=== PATIENT | male | born 1930 | race Two or more races ===

== ENCOUNTER 2018-05-01 11:17 | Inpatient (IN) | payer OTHER ==
[~2018-05-01] VITALS: Ht 157.5 cm; Wt 54.4 kg
--- NOTE | 2018-05-01 12:05 | NUR ---
FAMILIAR REFIERE PTE CON TOS PERSISTENTE Y PRESENTANDO SINTOMAS DESDE EL LUNES LA FIEBRE EMPEZO DESDE RUDDY.
[2018-05-01] MEDS ORDERED: METFORMIN HCL500 MG (12:07)
[2018-05-01] MEDS ORDERED: ASPIR 8181 MG (12:08)
[2018-05-01] MEDS ORDERED: DILTIAZEM 24HR120 MG (12:08)
[2018-05-01] MEDS ORDERED: PLAVIX75 MG (12:10)
[2018-05-01] MEDS ORDERED: RANEXA500 MG (12:10)
--- NOTE | 2018-05-01 13:30 | NUR ---
SE RECIBE PTE ALERTA Y ORIENTADO X3. SE ORIENTA A PTE SOBRE TX MEDICO. SE CANALIZA A PTE EN BRAZO R+ CON ANGIO #[id number], SE LE EXTRAEN MUESTRAS DE SANGRES CON EL USO DE MEDIDAS ASEPTICAS. SE LE ADMINISTRA MEDICAMENTO IV NARA ORDEN MEDICAS.
--- NOTE | 2018-05-01 15:26 | NUR ---
PACIENTE ALERTA Y ORIENTADO X3. EN BUTACA EN UNIDAD DE ASMA UNIT. SE ORIENTA A PACIENTE Y FAMILIAR SOBRE TX A RECIBIR Y REFIERE ENTENDER. SE ADMINISTRA MEDICAMENTO NARA ORDEN MEDICA. SE MANTIENE BAJO OBSERVACION POR CAMBIOS SIGNIFICATIVOS. IV FLUID PATENTE Y WALDEMAR DE EDEMA Y ERITEMA. PACIENTE CONSULTADO CON DR. LEANDRO ARTHUR.
[2018-05-07] MEDS ORDERED: XOPENEX0.63 MG/3 IH (09:28)
[2018-05-07] MEDS ORDERED: MEDROLPACK PO (09:29)
[2018-05-07] MEDS ORDERED: COMMODE (09:42)
== END 2018-05-07 10:09 | disposition home or self-care (01) | DRG 152 ==
LOC: ER 11:17 → EDSEX 12:24 → MEDJ 18:37 → MEDI 18:37 → SEC-K 18:37 → MEDI 19:25 → SEC-K 20:26 → MEDJ 05-02 11:43
PROVIDERS: ADMIT Internal Medicine
PROC: 3E0F7GC Introduction of Other Therapeutic Substance into Respiratory Tract, Via Natural or Artificial Opening (ICD-10-PCS; principal; 2018-05-01)
PROC: 4A033R1 Measurement of Arterial Saturation, Peripheral, Percutaneous Approach (ICD-10-PCS; 2018-05-01)
PROC: 8E0ZXY6 Isolation (ICD-10-PCS; 2018-05-01)
PROC: 4A12X4Z Monitoring of Cardiac Electrical Activity, External Approach (ICD-10-PCS; 2018-05-01)
DX: J11.1 Influenza due to unidentified influenza virus with other respiratory manifestations (principal); J80 Acute respiratory distress syndrome; I50.21 Acute systolic (congestive) heart failure; I25.810 Atherosclerosis of coronary artery bypass graft(s) without angina pectoris; J91.8 Pleural effusion in other conditions classified elsewhere; R63.0 Anorexia; E11.9 Type 2 diabetes mellitus without complications; Z79.4 Long term (current) use of insulin; I11.0 Hypertensive heart disease with heart failure; D72.818 Other decreased white blood cell count; D69.49 Other primary thrombocytopenia

== ENCOUNTER 2018-05-12 16:13 | Inpatient (IN) | payer OTHER ==
[~2018-05-12] VITALS: Ht 157.5 cm; Wt 56.7 kg
[~2018-05-12 16:13] MED LIST: ASPIR 8181 MG; COMMODE; DILTIAZEM 24HR120 MG; MEDROLPACK PO; METFORMIN HCL500 MG; PLAVIX75 MG; RANEXA500 MG; XOPENEX0.63 MG/3 IH
[2018-05-12] MEDS ORDERED: SIMVASTATIN10 MG (16:43)
== END 2018-05-15 14:57 | disposition expired | DRG 208 ==
LOC: ER 16:13 → SEC-K 05-13 18:49 → MEDJ 05-13 18:49
PROVIDERS: ADMIT Internal Medicine
PROC: BW24Y0Z Computerized Tomography (CT Scan) of Chest and Abdomen using Other Contrast, Unenhanced and Enhanced (ICD-10-PCS; 2018-05-13)
PROC: 4A033R1 Measurement of Arterial Saturation, Peripheral, Percutaneous Approach (ICD-10-PCS; 2018-05-13)
PROC: 3E0F7GC Introduction of Other Therapeutic Substance into Respiratory Tract, Via Natural or Artificial Opening (ICD-10-PCS; 2018-05-13)
PROC: 8E0ZXY6 Isolation (ICD-10-PCS; 2018-05-13)
PROC: 5A1935Z Respiratory Ventilation, Less than 24 Consecutive Hours (ICD-10-PCS; principal; 2018-05-15)
PROC: 0BH17EZ Insertion of Endotracheal Airway into Trachea, Via Natural or Artificial Opening (ICD-10-PCS; 2018-05-15)
PROC: 4A12X4Z Monitoring of Cardiac Electrical Activity, External Approach (ICD-10-PCS; 2018-05-15)
DX: J10.08 Influenza due to other identified influenza virus with other specified pneumonia (principal); A41.89 Other specified sepsis; J96.01 Acute respiratory failure with hypoxia; R65.10 Systemic inflammatory response syndrome (SIRS) of non-infectious origin without acute organ dysfunction; I11.0 Hypertensive heart disease with heart failure; I50.9 Heart failure, unspecified; E11.9 Type 2 diabetes mellitus without complications; Z79.4 Long term (current) use of insulin; F03.90 Unspecified dementia, unspecified severity, without behavioral disturbance, psychotic disturbance, mood disturbance, and anxiety; I25.10 Atherosclerotic heart disease of native coronary artery without angina pectoris; R91.8 Other nonspecific abnormal finding of lung field